=== PATIENT | male | born 1975 | race Caucasian/White ===

== ENCOUNTER 2018-09-01 06:20 | Inpatient (IN) | payer BC ==
[2018-09-01 06:54] LABS: Basophils # (A) 0.1 k/uL (0-0.2); Basophils % (A) 1 %; Eosinophils # (A) 0.9 k/uL (0-0.7); Eosinophils % (A) 9 %; HCT 47.4 % (39.0-53.0); HGB 15.8 gm/dL (13.0-17.5); Lymphocytes # (A) 1.7 k/uL (1.0-4.8); Lymphocytes % (A) 19 %; MCH 31.1 pg (25.0-35.0); MCHC 33.4 g/dL (31.0-37.0); MCV 93.3 fL (80.0-100.0); Mean Platelet Volume 7.2; Monocytes # (A) 0.7 k/uL (0-1.0); Monocytes % (A) 8 %; Neutrophils # (A) 5.5 k/uL (1.3-7.7); Neutrophils % (A) 61 %; Platelet Count 251 k/uL (150-450); RBC 5.08 m/uL (4.30-5.90); RDW 12.5 % (11.5-15.5)
[2018-09-01 07:07] LABS: ALT 38 U/L (21-72); AST 26 U/L (17-59); Albumin 4.3 g/dL (3.5-5.0); Alkaline Phosphatase 74 U/L (38-126); Anion Gap 6 mmol/L; Blood Urea Nitrogen 12 mg/dL (9-20); Calcium 9.8 mg/dL (8.4-10.2); Carbon Dioxide 23 mmol/L (22-30); Chloride 113 mmol/L (98-107); Glucose 114 mg/dL (74-99); Magnesium 1.9 mg/dL (1.6-2.3); Potassium 4.7 mmol/L (3.5-5.1); Sodium 142 mmol/L (137-145); Total Bilirubin 0.4 mg/dL (0.2-1.3); Total Protein 7.2 g/dL (6.3-8.2)
[2018-09-01 07:10] LABS: INR 0.9 (<1.2); Partial Thromboplastin Time 25.6 sec (22.0-30.0); Prothrombin Time 9.9 sec (9.0-12.0)
--- NOTE | 2018-09-01 07:20 | ED ---
Chest Pain HPI - General Source: patient Mode of arrival: ambulatory Limitations: no limitations <Karlee Dash - Last Filed: 09/01/18 07:15> <Estrada Villegas - Last Filed: 09/01/18 08:51> - General Chief Complaint: Chest Pain Stated Complaint: Chest Pain Time Seen by Provider: 09/01/18 06:42 - History of Present Illness Initial Comments: Armando is a previously healthy 43-year-old male presents the emergency department today via private vehicle for evaluation of left-sided chest pain with radiation to the left arm and jaw. Patient reports that he didn't sleep well last night but felt okay when he woke up, he got ready for work and drove to work without incident. Patient reports that upon parking at work and opening the door he felt pain and pressure in his chest. He reports that he sat in his car give himself a chance to breathe through it continued to have pressure-like pain in his chest. Patient reports he then decided to walking to work thinking the fresh air would help, he reports that he had to stop at the door to catch his breath. He then went to his desk but continued to have pressure-like pain, upon seating he noted that the pain seemed to be radiating to his jaw and his left arm. He did take aspirin and contacted his she advised him to try stretching and see if this could be a pulled muscle however the pain persisted at which time he decided to come to the ER for evaluation. Patient is a former smoker but quit smoking multiple months ago. He has no history of hypertension hyperlipidemia diabetes or known vascular disease. He has no family history of early cardiac disease. (Karlee Dash) - Related Data Home Medications Medication Instructions Recorded Confirmed Aspirin EC [Ecotrin] 650 mg PO DAILY PRN 09/01/18 09/01/18 Allergies Allergy/AdvReac Type Severity Reaction Status Date / Time Fish Containing Products Allergy Anaphylaxis Verified 09/01/18 07:08 [Fish] Review of Systems ROS Other: All systems not noted in ROS Statement are negative. <Karlee Dash - Last Filed: 09/01/18 07:15> ROS Other: All systems not noted in ROS Statement are negative. <Estrada Villegas - Last Filed: 09/01/18 08:51> ROS Statement: Those systems with pertinent positive or pertinent negative responses have been documented in the HPI. EKG Findings - EKG Comments: EKG Findings:: EKG was obtained at 6:33 AM, rate is 60 rhythm is sinus there is normal axis, there are normal intervals, there are no acute ST elevations or depressions there is no evidence of acute ischemia or infarction. <Karlee Dash - Last Filed: 09/01/18 07:15> Past Medical History Past Medical History: No Reported History History of Any Multi-Drug Resistant Organisms: None Reported Additional Past Surgical History / Comment(s): exploratory testicular surgery. Past Psychological History: No Psychological Hx Reported Smoking Status: Former smoker Past Alcohol Use History: None Reported Past Drug Use History: None Reported <Karlee Dash - Last Filed: 09/01/18 07:15> General Exam Limitations: no limitations <Karlee Dash - Last Filed: 09/01/18 07:15> <Estrada Villegas - Last Filed: 09/01/18 08:51> - General Exam Comments Initial Comments: Physical Exam GENERAL: Patient is well-developed and well-nourished. Patient is nontoxic and well- hydrated and is in no distress. HENT: Normocephalic, Atraumatic. EYES: PERRL, EOMI PULMONARY: Unlabored respirations. No audible rales rhonchi or wheezing was noted. CARDIOVASCULAR: There is a regular rate and rhythm without any murmurs gallops or rubs. ABDOMEN: Soft and nontender with normal bowel sounds. SKIN: Skin is clear with no lesions or rashes and otherwise unremarkable. : Deferred NEUROLOGIC: Patient is alert and oriented x3. Moving all extremities spontaneously MUSCULOSKELETAL: Normal extremities with adequate strength and full range of motion. No lower extremity swelling or edema. No calf tenderness. PSYCHIATRIC: Normal psychiatric evaluation. 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 Patient did present with complaints of chest pain he did have an episode of nausea with some brief vomiting. He states the pain initially was 7/10 severity currently it's approximately 3/10 in severity. He describes it as retrosternal chest pressure he states it did radiate to his jaw and he has some numbness to his left arm. No prior history of heart disease he is a former smoker. No other risk factors. Patient was given nitroglycerin he did resolve the pain. Patient will be admitted for inpatient evaluation. I did discuss the case with Dr. Ghosh. (Estrada Villegas) Chest Pain MDM <Karlee Dash - Last Filed: 09/01/18 07:15> <Estrada Villegas - Last Filed: 09/01/18 08:51> - MDM She was seen and evaluated history was obtained from the patient and at bedside The previously healthy physically active 43-year-old male who reports he usually walks 6 miles daily and per to [place] in moderate physical activity without any chest pain or shortness breath. Patient developed sudden chest pain upon arrival at work this morning with radiation to the left arm and jaw. Heart score 1 - moderate suspicion Cardiac workup ordered Patient care signed out to Dr Villegas at shift change (Karlee Dash) Disposition <Karlee Dash - Last Filed: 09/01/18 07:15> <Estrada Villegas - Last Filed: 09/01/18 08:51> Clinical Impression: Unstable angina pectoris, Chest pain Disposition: ADMITTED IP TO THIS HOSP Condition: Stable Referrals: Jose Baker MD [Primary Care Provider] - 1-2 days
--- NOTE | 2018-09-01 07:26 | XR ---
EXAMINATION TYPE: XR chest 2V DATE OF EXAM: 09/01/2018 COMPARISON: 07/27/2013 INDICATION: Short of breath chest heaviness TECHNIQUE: Frontal and lateral views of the chest are obtained. FINDINGS: The heart size is normal. The pulmonary vasculature is normal. The lungs are clear. IMPRESSION: 1. No acute pulmonary process.
[2018-09-01 07:33] LABS: Troponin I 0.014 ng/mL (0.000-0.034)
[2018-09-01] MEDS ORDERED: NITROGLYCERIN SL TABS 0.4 MG TAB SUBLINGUAL STA (07:48)
[2018-09-01] MEDS ORDERED: HEPARIN SODIUM,PORCINE 5,000 UNIT/ML 1 ML VIAL IV ONE (08:52)
[2018-09-01] MEDS ORDERED: NITROGLYCERIN SL TABS 0.4 MG TAB SUBLINGUAL PRN (08:52)
[2018-09-01] MEDS ORDERED: HEPARIN SOD,PORK IN 0.45% NACL 25,000 UNIT in 0.45% NACL 1 250ML.BAG IV SCH (09:00)
[2018-09-01] MEDS ORDERED: SODIUM CHLORIDE 0.9% 1,000 ML IV SCH ×2 (09:00→18:15)
[2018-09-01] MEDS ORDERED: amLODIPine 10 MG TAB PO STA (10:09)
[2018-09-01] MEDS ORDERED: LISINOPRIL 2.5 MG TAB PO STA (10:10)
[2018-09-01 10:45] LABS: Cholesterol 255 mg/dL (<200); HDL Cholesterol 35 mg/dL (40-60); LDL Cholesterol,Calculated 141 mg/dL (0-99); Triglycerides 397 mg/dL (<150)
--- NOTE | 2018-09-01 11:16 | P.HPIM ---
History of Present Illness H&P Date: 09/01/18 Chief Complaint: Chest pain The patient is a 43-year-old male with no significant past medical history other than being recently a former smoker that presents to the ER via private vehicle with chief complaint of chest pain. Apparently this morning while in the parking lot at work and while opening his car door he felt severe Left sided chest pain described as heaviness and squeezing with radiation to his jaw and left upper extremity, with associated shortness of breath and nausea. The patient had no diaphoresis, no palpitations, denies any lower extremity swelling. The patient denies any previous symptoms like this, he does report a history of tachycardia which she has not had any problems with for the last several years. The patient denies any recent illnesses, the patient denies any sedentary lifestyle and reports that he walks approximately 6 miles a day at his current job. The patient did report taking aspirin and contacted his fiance who advised them on stretching thinking that his discomfort might be muscular in nature, there was no improvement in his systems persisted and subsequently presented to the ER for further workup. In the ER the patient had a comprehensive typical workup, EKG showed sinus mechanism with no acute suggestive of ischemia with a heart rate of 60, his initial troponin was negative, d-dimer was negative at 0.37. Chest x-ray showed no acute pulmonary process. The patient was started on nitroglycerin and heparin drip, the patient was also to have elevated uncontrolled blood pressures 150/102 and was subsequently recommended for admission to rule out ACS Review of Systems Pertinent positives per HPI all other review of systems otherwise negative Past Medical History Past Medical History: Chest Pain / Angina History of Any Multi-Drug Resistant Organisms: None Reported Additional Past Surgical History / Comment(s): exploratory testicular surgery. Past Anesthesia/Blood Transfusion Reactions: No Reported Reaction Past Psychological History: No Psychological Hx Reported Smoking Status: Former smoker Past Alcohol Use History: None Reported Past Drug Use History: None Reported Medications and Allergies Home Medications Medication Instructions Recorded Confirmed Type Aspirin EC [Ecotrin] 650 mg PO DAILY PRN 09/01/18 09/01/18 History Allergies Allergy/AdvReac Type Severity Reaction Status Date / Time Fish Containing Products Allergy Anaphylaxis Verified 09/01/18 07:08 [Fish] Physical Exam Vitals: Vital Signs Temp Pulse Pulse Resp BP BP Pulse Ox 09/01/18 10:10 97.7 F 58 L 14 129/84 96 01/24/19 08:09 64 18 141/93 97 09/01/18 07:30 52 L 13 132/97 95 09/01/18 06:41 57 L 09/01/18 06:21 97.7 F 67 16 150/102 97 Intake and Output 08/31/18 09/01/18 09/01/18 22:59 06:59 14:59 Intake Total 0 Balance 0 Intake: Oral 0 Other: Weight 95.254 kg Constitutional: No acute distress, conversant, pleasant Eyes: Anicteric sclerae, moist conjunctiva, no lid-lag, PERRLA ENMT: NC/AT,Oropharynx clear, no erythema, exudates Neck:Supple, FROM, no masses, or JVD, No carotid bruits; No thyromegaly Lungs: Clear to auscultation, Clear to percussion, Normal respiratory effort, no accessory muscle use Cardiovascular: Heart regular in rate and rhythm, No murmurs, gallops, or rubs no peripheral edema Abdominal: Soft Nontender, nom distended, no guarding, no rebound or rigidity, Normoactive bowel sounds No hepatomegaly, No splenomegaly, No palpable mass No abdominal wall hernia noted Skin: Normal temperature, tone, texture, turgor, No induration No subcutaneous nodules, No rash, lesions, No ulcers Extremities:No digital cyanosis No clubbing, Pedal pulses intact and symmetrical Radial pulses intact and symmetrical Normal gait and station, No calf tenderness Psychiatric: Alert and oriented to person, place and time, Appropriate affect Intact judgement Neuro: Muscles Strength 5/5 in all 4 extremities, Sensation to light touch grossly present throughout, Cranial nerves II-XII grossly intact. No focal sensory deficits Results CBC & Chem 7: 09/01/18 06:34 09/01/18 06:34 Labs: Abnormal Lab Results - Last 24 Hours (Table) 09/01/18 09/01/18 09/01/18 Range/Units 06:34 06:34 06:34 Eosinophils # 0.9 H (0-0.7) k/uL Chloride 113 H (98-107) mmol/L Glucose 114 H (74-99) mg/dL Total Creatine Kinase 222 H (55-170) U/L Triglycerides (<150) mg/dL Cholesterol (<200) mg/dL LDL Cholesterol, Calc (0-99) mg/dL HDL Cholesterol (40-60) mg/dL 09/01/18 Range/Units 06:34 Eosinophils # (0-0.7) k/uL Chloride (98-107) mmol/L Glucose (74-99) mg/dL Total Creatine Kinase (55-170) U/L Triglycerides 397 H (<150) mg/dL Cholesterol 255 H (<200) mg/dL LDL Cholesterol, Calc 141 H (0-99) mg/dL HDL Cholesterol 35 L (40-60) mg/dL Thrombosis Risk Factor Assmnt - Choose All That Apply Any of the Below Risk Factors Present?: Yes Each Factor Represents 1 point: Age 41-60 years Other Risk Factors: No Thrombosis Risk Factor Assessment Total Risk Factor Score: 1 Thrombosis Risk Factor Assessment Level: Low Risk Assessment and Plan (1) Chest pain Current Visit: Yes Status: Acute Code(s): R07.9 - CHEST PAIN, UNSPECIFIED SNOMED Code(s): 78491043 (2) Elevated blood pressure reading Current Visit: Yes Status: Acute Code(s): R03.0 - ELEVATED BLOOD-PRESSURE READING, W/O DIAGNOSIS OF HTN SNOMED Code(s): 93281875 Plan: Patient is placed in observation anticipate a less than 2 midnight stay with atypical chest pain now resolved. Initial EKG and cardiac enzymes are not suggestive of any acute ischemia, we'll continue to trend enzymes obtain a lipid panel, echocardiogram and consult cardiology. Patient is noted to have elevated blood pressure and possibly has underlying hypertension, heart rate however is borderline and unlikely to tolerate beta blockers at this time hence the patient is started on Norvasc and lisinopril. Routine chest pain orders with aspirin and nitroglycerin are continued we'll continue to follow his clinical course and follow-up with cardiology recommendations. CODE STATUS Full code Discussed plan of care with: Patient Anticipated discharge 1-2 days
[2018-09-01 13:29] LABS: Creatine Kinase MB 4.4 ng/mL (0.0-2.4)
[2018-09-01 13:37] LABS: Troponin I 0.729 ng/mL (0.000-0.034)
[2018-09-01] MEDS ORDERED: CLOPIDOGREL 75 MG TAB PO STA ×3 (15:08→15:52)
[2018-09-01] MEDS: ASPIRIN 81 MG PO SCH (15:35)
[2018-09-01] MEDS: ATORVASTATIN 40 MG TAB PO SCH (15:35)
--- NOTE | 2018-09-01 15:49 | P.CRDCN ---
History of Present Illness History of present illness: This is Dr. Ortiz dictating a consult on this patient The patient was interviewed and examined by me IMPRESSION / ASSESSMENT: Non-Q wave myocardial infarction likely inferior wall territory Serial ECG changes with T-wave inversions in the inferior leads on the second ECG Abnormal troponins, rising pattern Dyslipidemia Past history of smoking for greater than 20 years but stopped smoking several months back PLAN: Atorvastatin 40 mg by mouth daily 1 stat line Plavix 600 mg by mouth stat and thereafter daily Aspirin 162 mg by mouth daily Stop amlodipine Discussed with patient and discussed with Dr. Arechiga We'll proceed with coronary angiography this evening Patient is pain-free at this time. Was relieved with nitroglycerin upon arrival to the emergency room HPI This morning as the patient was heading to work he started experiencing left precordial chest discomfort that radiated to the inside of his left arm and to the left side of the jaw quite severe and he felt uncomfortable and nauseous When he came to the emergency room he was still having pain but was relieved quickly within 5 minutes or so with sublingual nitroglycerin. He is on a Nitropaste has been pain-free since then Second troponin is abnormal Second ECG shows serial T-wave inversions in the inferior leads consistent with injury/non-Q-wave infarction in the inferior wall territory ROS: No fever chills or rigors, no cough, phlegm or expectoration, no diarrhea, no hematuria, dysuria, no musculoskeletal complaints, no strokes or seizures, no skin lesions. EXAMINATION: Normal blood pressure, afebrile 97.7F, pulse rate in the 50s and 60s Blood pressure 141/93 mmHg line breath sounds are clear no rhonchi no crackles Normal heart sounds normal S1 normal S2 no murmurs or gallops no rub Abdomen is soft nontender Extremities warm no edema REVIEW OF LABS, ECG & MEDICAL DATA Normal hemoglobin, normal d-dimer, normal electrolytes, normal kidney function, normal renal function Elevated CPK, rising pattern of CK-MB and rising pattern of troponin I 0.014 followed by 0.7-9 Triglycerides 397 Total cholesterol 255, LDL 141 and HDL 35 Serial changes noted on ECG, inferior leads, development of T-wave inversions Past Medical History Past Medical History: Chest Pain / Angina History of Any Multi-Drug Resistant Organisms: None Reported Additional Past Surgical History / Comment(s): exploratory testicular surgery. Past Anesthesia/Blood Transfusion Reactions: No Reported Reaction Past Psychological History: No Psychological Hx Reported Smoking Status: Former smoker Past Alcohol Use History: None Reported Past Drug Use History: None Reported Medications and Allergies Home Medications Medication Instructions Recorded Confirmed Type Aspirin EC [Ecotrin] 650 mg PO DAILY PRN 09/01/18 09/01/18 History Allergies Allergy/AdvReac Type Severity Reaction Status Date / Time Fish Containing Products Allergy Anaphylaxis Verified 09/01/18 07:08 [Fish] Physical Exam Vitals: Vital Signs Temp Pulse Pulse Resp BP BP Pulse Ox 09/01/18 15:11 95 09/01/18 10:10 97.7 F 58 L 14 129/84 96 09/01/18 08:09 64 18 141/93 97 09/01/18 07:30 52 L 13 132/97 95 09/01/18 06:41 57 L 09/01/18 06:21 97.7 F 67 16 150/102 97 Intake and Output 09/01/18 09/01/18 09/01/18 06:59 14:59 22:59 Intake Total 236 Output Total 1 Balance 235 Intake: Oral 236 Output: Urine 1 Other: Weight 95.254 kg Results 09/01/18 06:34 09/01/18 06:34 Cardiac Enzymes 09/01/18 09/01/18 09/01/18 Range/Units 06:34 06:34 12:29 AST 26 (17-59) U/L CK-MB (CK-2) 2.0 4.4 H (0.0-2.4) ng/mL Troponin I 0.014 0.729 H* (0.000-0.034) ng/mL Coagulation 09/01/18 09/01/18 Range/Units 06:34 15:05 PT 9.9 (9.0-12.0) sec APTT 25.6 34.3 H (22.0-30.0) sec Lipids 09/01/18 Range/Units 06:34 Triglycerides 397 H (<150) mg/dL Cholesterol 255 H (<200) mg/dL HDL Cholesterol 35 L (40-60) mg/dL CBC 09/01/18 Range/Units 06:34 WBC 9.0 (3.8-10.6) k/uL RBC 5.08 (4.30-5.90) m/uL Hgb 15.8 (13.0-17.5) gm/dL Hct 47.4 (39.0-53.0) % Plt Count 251 (150-450) k/uL Comprehensive Metabolic Panel 09/01/18 Range/Units 06:34 Sodium 142 (137-145) mmol/L Potassium 4.7 (3.5-5.1) mmol/L Chloride 113 H (98-107) mmol/L Carbon Dioxide 23 (22-30) mmol/L BUN 12 (9-20) mg/dL Creatinine 0.89 (0.66-1.25) mg/dL Glucose 114 H (74-99) mg/dL Calcium 9.8 (8.4-10.2) mg/dL AST 26 (17-59) U/L ALT 38 (21-72) U/L Alkaline Phosphatase 74 (38-126) U/L Total Protein 7.2 (6.3-8.2) g/dL Albumin 4.3 (3.5-5.0) g/dL Current Medications Generic Name Dose Route Start Last Admin Trade Name Freq PRN Reason Stop Dose Admin Aspirin 162 mg 09/01/18 15:15 09/01/18 15:35 Aspirin PO 162 mg DAILY [facility] Administration Atorvastatin Calcium 40 mg 09/01/18 15:15 09/01/18 15:35 Lipitor PO 40 mg DAILY [facility] Administration Clopidogrel Bisulfate 75 mg 09/02/18 09:00 Plavix PO DAILY [facility] Heparin Sodium/Sodium Chloride 250 mls @ 10 mls/hr 09/01/18 09:00 09/01/18 09 :11 25,000 unit/ Sodium Chloride IV 10.5 units/kg/hr .Q24H ANTHONY 10 mls/hr Administration Protocol 10.5 UNITS/KG/HR Sodium Chloride 1,000 mls @ 20 mls/hr 09/01/18 09:00 09/01/18 09:13 Saline 0.9% IV 20 mls/hr .Q24H ANTHONY Administration Lisinopril 10 mg 09/02/18 09:00 Zestril PO DAILY [facility] Nitroglycerin 1 inch 09/01/18 12:00 Nitro-Bid Oint TOPICAL Q6HR [facility] Nitroglycerin 0.4 mg 09/01/18 08:52 Nitrostat SUBLINGUAL Q5M PRN Chest Pain Intake and Output 09/01/18 09/01/1819 06:59 14:59 22:59 Intake Total 236 Output Total 1 Balance 235 Intake: Oral 236 Output: Urine 1 Other: Weight 95.254 kg 09/01/18 06:34 09/01/18 06:34
[2018-09-01] MEDS ORDERED: HYDROmorphone 2 MG/ML 1 ML SYRINGE IVP ONE (15:50)
[2018-09-01] MEDS ORDERED: VERAPAMIL 2.5 MG/ML 2 ML AMP ONE (17:04)
[2018-09-01] MEDS ORDERED: LIDOCAINE 1% INJ 10MG/ML (20 ML MDV) ONE (17:05)
[2018-09-01] MEDS ORDERED: HEPARIN SODIUM 1,000 UN/ML (10ML VL) ONE (17:05)
[2018-09-01] MEDS ORDERED: SODIUM CHLORIDE 0.9% 1,000 ML IV ONE (17:31)
[2018-09-01] MEDS ORDERED: methylPREDNISolone SOD SUCCI 125 MG/2 ML VIAL ONE (17:34)
[2018-09-01] MEDS ORDERED: MIDAZOLAM 2 MG/2 ML VIAL IVP ONE (17:35)
[2018-09-01] MEDS ORDERED: methylPREDNISolone SOD SUCCI 125 MG/2 ML VIAL IVP ONE (17:38)
[2018-09-01] MEDS ORDERED: LIDOCAINE 2% INJ 20 MG/ML SQ ONE ×2 (17:40→17:53)
[2018-09-01] MEDS: VERAPAMIL SYRINGE (5 MG/10 ML) INTRAARTER ONE ×2 (17:43→17:52)
[2018-09-01] MEDS ORDERED: HEPARIN SODIUM 1,000 UN/ML (10ML VL) IV ONE (18:03)
[2018-09-01] MEDS ORDERED: IOPAMIDOL-370 125ML BTL INJ ONE (18:06)
[2018-09-01] MEDS ORDERED: fentaNYL (PF) 50 MCG/ML 2 ML AMP ONE (18:09)
[2018-09-01] MEDS ORDERED: RX INFO: IV CONTRAST WAS GIVEN 1 EACH MISC MISCELLANE PRN (18:12)
[2018-09-01] MEDS: NITROGLYCERIN OINT 1 INCH/GM PACKET TOPICAL SCH ×3 (18:42→21:20)
[2018-09-01 19:40] LABS: Troponin I 0.747 ng/mL (0.000-0.034)
--- NOTE | 2018-09-01 20:57 | CC ---
CARDIAC CATHETERIZATION REPORT DATE OF SERVICE: 09/01/2018 PERFORMING PHYSICIAN: Hadley Arechiga MD, energy economist. PROCEDURE PERFORMED: 1. Selective right and left coronary angiogram. 2. Left heart catheterization. INDICATION: This is a pleasant 43-year-old gentleman who presented to the hospital with chest discomfort and abnormal cardiac enzymes. Beside that, his EKG was concerning for ischemia with inversion of the T-wave. Because of that, a heart catheterization was advised by Dr. Ortiz. APPROACH: 1. Right radial artery. 2. Right common femoral artery. COMPLICATIONS: None. LEVEL OF SEDATION: Moderate, with sedation length of 31 minutes. PROCEDURE DESCRIPTION: After obtaining informed consent, the patient was brought to the supervisor dental laboratory. The right radial artery was cannulated using micropuncture technique. The micropuncture wire passed easily. Then I placed a 5-Portuguese sheath in the right radial artery. I attempted advancing JR4 through the right radial artery, but the catheter would not cross the right elbow, and because of that I aborted the right radial approach and I proceeded with a right groin approach. The right common femoral artery was cannulated using micropuncture technique. The micropuncture wire passed easily. Then I placed a 6-Portuguese sheath in the right common femoral artery. After that I did selective right and left coronary angiogram using JR4 and JL3.5 catheters. Left heart catheterization was performed using 6-Portuguese pigtail catheter. The procedure was completed without any complication. SELECTIVE CORONARY ANGIOGRAM: 1. The right coronary artery is a large-caliber vessel and it is a dominant vessel. It is angiographically normal. It distally bifurcates into PDA and PLV branches. Both are angiographically normal. 2. The left main is angiographically normal. It bifurcates into left circumflex and left anterior descending artery. 3. Left circumflex is a large-caliber vessel. It is a nondominant vessel. The left circumflex system is angiographically normal. In the mid portion it gives rise to a large OM branch which bifurcates into 2 subbranches, appeared to be angiographically normal. 4. The LAD. The proximal LAD appeared to be normal. The mid LAD is normal and gives rise to 2 diagonal branches. They appeared to be angiographically normal. The LAD distally appeared to be normal. HEMODYNAMICS: The left ventricular end-diastolic pressure was 12 mmHg without a gradient across the aortic valve. CONCLUSION: 1. Normal coronary angiogram. 2. Normal left ventricular end-diastolic pressure. POST-PROCEDURE MANAGEMENT: 1. Medical treatment. 2. Follow up with the patient. SAIDA / ELLYN: [id number] /
[2018-09-02] MEDS ORDERED: CLOPIDOGREL 75 MG TAB PO SCH (09:00)
[2018-09-02] MEDS ORDERED: LISINOPRIL 2.5 MG TAB PO SCH (09:00)
[2018-09-02] MEDS ORDERED: amLODIPine 10 MG TAB PO SCH (09:00)
[2018-09-02] MEDS ORDERED: LISINOPRIL 10 MG TAB PO SCH (09:00)
[2018-09-02] MEDS ORDERED: ASPIRIN 325 MG TAB PO SCH (09:00)
--- NOTE | 2018-09-02 09:19 | ECHOF ---
Referral Reason:chest pain/accelerated hypertension MEASUREMENTS -------- HEIGHT: 180.3 cm WEIGHT: 95.3 kg BP: 129/84 RVIDd: 2.7 cm (< 3.3) IVSd: 1.3 cm (0.6 - 1.1) LVIDd: 4.4 cm (3.9 - 5.3) LVPWd: 1.4 cm (0.6 - 1.1) IVSs: 2.0 cm LVIDs: 2.7 cm LVPWs: 1.5 cm LAESV Index (A-L): 21.61 ml/m Ao Diam: 3.4 cm (2.0 - 3.7) AV Cusp: 2.5 cm (1.5 - 2.6) LA Diam: 3.3 cm (2.7 - 3.8) MV EXCURSION: 24.902 mm (> 18.000) MV EF SLOPE: 177 mm/s (70 - 150) EPSS: 0.3 cm MV E Andrew: 0.76 m/s MV DecT: 233 ms MV A Andrew: 0.60 m/s MV E/A Ratio: 1.27 RAP: 5.00 mmHg RVSP: 9.86 mmHg FINDINGS -------- Sinus rhythm. This was a technically good study. The left ventricular size is normal. There is mild concentric left ventricular hypertrophy. Overa ll left ventricular systolic function is low-normal with, an EF between 50 - 55 %. Basal inferior L V wall motion is hypokinetic. The right ventricle is normal in size and function. The left atrium is normal in size. The right atrium is normal in size. The aortic valve is trileaflet and appears structurally normal. There is trace mitral regurgitation. Trace tricuspid regurgitation present. The right ventricular systolic pressure, as measured by Dopp ler, is 9.86mmHg. Pulmonic valve appears structurally normal. The aortic root size is normal. Normal inferior vena cava with normal inspiratory collapse consistent with estimated right atrial pre ssure of 5 mmHg. The pericardium is normal. CONCLUSIONS -------- 1. Sinus rhythm. 2. This was a technically good study. 3. The left ventricular size is normal. 4. There is mild concentric left ventricular hypertrophy. 5. Overall left ventricular systolic function is low-normal with, an EF between 50 - 55 %. 6. Basal inferior LV wall motion is hypokinetic. 7. The right ventricle is normal in size and function. 8. The left atrium is normal in size. 9. The right atrium is normal in size. 10. The aortic valve is trileaflet and appears structurally normal. 11. There is trace mitral regurgitation. 12. Trace tricuspid regurgitation present. 13. The right ventricular systolic pressure, as measured by Doppler, is 9.86mmHg. 14. Pulmonic valve appears structurally normal. 15. The aortic root size is normal. 16. Normal inferior vena cava with normal inspiratory collapse consistent with estimated right atrial pressure of 5 mmHg. 17. The pericardium is normal. SOLICITING FREIGHT AGENT: Macrina Reyes RDCS
[2018-09-02 09:25] LABS: Creatine Kinase MB 3.7 ng/mL (0.0-2.4)
[2018-09-02 09:28] LABS: Troponin I 0.305 ng/mL (0.000-0.034)
[2018-09-02] MEDS: CLOPIDOGREL 75 MG TAB PO SCH (09:57)
[2018-09-02] MEDS: ATORVASTATIN 40 MG TAB PO SCH (09:57)
[2018-09-02] MEDS: METOPROLOL SUCCINATE (ER) 25 MG TAB.ER.24H PO SCH (09:57)
[2018-09-02] MEDS: ASPIRIN 81 MG PO SCH (09:57)
--- NOTE | 2018-09-02 10:12 | ECHOF ---
Referral Reason:abnormal ecg, followup from 09/01/18 MEASUREMENTS -------- HEIGHT: 185.4 cm WEIGHT: 95.3 kg BP: 120/71 FINDINGS -------- The left ventricular size is normal. There is normal global left ventricular contractility. [facility] systolic function is normal with, an EF between 60 - 65 %. CONCLUSIONS -------- 1. The left ventricular size is normal. 2. There is normal global left ventricular contractility. FILLING MACHINE SET UP MECHANIC: Latonya Rico RDCS
--- NOTE | 2018-09-02 10:26 | P.PN ---
Subjective Principal diagnosis: Patient is doing well. He has no chest discomfort dizziness lightheadedness or palpitations. He's ambulating the hallways Afebrile 98.5F pulse rate in the 80s normal respirations blood pressure 119/ 76. Millimeters of mercury Normal heart sounds no murmurs no gallops no rub Breath sounds are clear no rhonchi no crackles Abdomen is soft nontender Access sites have healed well Impression Patient presented with left precordial chest discomfort with numbness and discomfort in the jaw and the inside of the left arm that was relieved with nitroglycerin, first ECG was normal first troponin is normal Second troponin was abnormal at 0.7 with new ECG changes consistent with inferior wall ischemia with T-wave inversions in leads 3 and aVF Coronary angiography however did NOT reveal any epicardial occlusive coronary arterial disease Past history of smoking for about 22 years but quit several months back History of dyslipidemia with a triglyceride of 397, total cholesterol 255, LDL 141 and HDL of 35 This morning he remains pain-free but his follow-up twelve-lead ECG shows ECG changes, ST-T abnormalities noted inferior laterally now, extending into the lateral precordial leads Repeat troponin this morning is 0.3 consistent with a rise and fall pattern D-dimer was normal yesterday Yesterday his 2-D echo showed preserved LV size and systolic function with possibly a subtle inferior basal wall motion abnormalities although I'm not completely convinced of that I repeated his echo this morning and it shows normal LV size and systolic function with preserved segmental wall motion especially inferior wall and lateral and apical batista He denied any recent viral infection, but I sent titers for parvovirus, coxsackievirus and echovirus He denies any history of migraines or vasculitides He does not have any conditions that could precipitate embolism, d-dimer was normal He did not receive any bad news or any recent stress, He does not perform extreme exercise This is most likely an ischemic event, given the rise and fall pattern in troponins, a type I acute myocardial infarction with PLAQUE rupture with spontaneous resolution rather than the other conditions consider above in the differential diagnosis Final impression Non-Q wave myocardial infarction Suggest Baby aspirin Plavix 75 mg by mouth daily for 6 weeks Atorvastatin 40 mg by mouth daily and I would aim for a 50% reduction in his LDL and aim for preferably below 70 mg deciliter since his baseline is around 141 Low-dose beta blockers No amlodipine No GRADY inhibitorS Continue telemetry monitoring today. Do not discharged today. Discussed in detail with the patient and his I will see him in the office within a week. Further imaging studies in the future as an outpatient Objective - Vital Signs Vital signs: Vital Signs Temp 98.5 F 09/02/18 08:00 Pulse 89 09/02/18 08:58 Resp 16 09/02/18 08:58 BP 119/76 09/02/18 08:00 Pulse Ox 94 L 09/02/18 08:00 Intake & Output 09/01/18 09/02/18 09/02/18 18:59 06:59 18:59 Intake Total 536 Output Total 2 Balance 534 Intake: IV 100 Oral 436 Output: Urine 2 Other: Voiding Method Urinal Urinal # Voids 1 2 - Labs CBC & Chem 7: 09/01/18 06:34 09/01/18 06:34 Labs: Abnormal Lab Results - Last 24 Hours (Table) 09/01/18 09/01/18 09/01/18 Range/Units 06:34 12:29 15:05 APTT 34.3 H (22.0-30.0) sec Total Creatine Kinase 209 H (55-170) U/L CK-MB (CK-2) 4.4 H (0.0-2.4) ng/mL Troponin I 0.729 H* (0.000-0.034) ng/mL Triglycerides 397 H (<150) mg/dL Cholesterol 255 H (<200) mg/dL LDL Cholesterol, Calc 141 H (0-99) mg/dL HDL Cholesterol 35 L (40-60) mg/dL 09/01/18 09/02/18 Range/Units 18:25 08:39 APTT (22.0-30.0) sec Total Creatine Kinase 195 H (55-170) U/L CK-MB (CK-2) 5.0 H 3.7 H (0.0-2.4) ng/mL Troponin I 0.747 H* 0.305 H* (0.000-0.034) ng/mL Triglycerides (<150) mg/dL Cholesterol (<200) mg/dL LDL Cholesterol, Calc (0-99) mg/dL HDL Cholesterol (40-60) mg/dL
--- NOTE | 2018-09-02 10:47 | P.PN ---
Subjective Progress Note Date: 09/02/18 Patient doing well today and denies any chest pain or shortness of breath does report some tenderness in his groin area having his cath yesterday. Objective - Vital Signs Vital signs: Vital Signs Temp 98.5 F 09/02/18 08:00 Pulse 89 09/02/18 08:58 Resp 16 09/02/18 08:58 BP 119/76 09/02/18 08:00 Pulse Ox 94 L 09/02/18 08:00 Intake & Output 09/01/18 09/02/18 09/02/18 18:59 06:59 18:59 Intake Total 536 Output Total 2 Balance 534 Intake: IV 100 Oral 436 Output: Urine 2 Other: Voiding Method Urinal Urinal # Voids 1 2 - Exam Constitutional: No acute distress, conversant, pleasant Eyes: Anicteric sclerae, moist conjunctiva, no lid-lag, PERRLA ENMT: NC/AT,Oropharynx clear, no erythema, exudates Neck:Supple, FROM, no masses, or JVD, No carotid bruits; No thyromegaly Lungs: Clear to auscultation, Clear to percussion, Normal respiratory effort, no accessory muscle use Cardiovascular: Heart regular in rate and rhythm, No murmurs, gallops, or rubs no peripheral edema Abdominal: Soft Nontender, nom distended, no guarding, no rebound or rigidity, Normoactive bowel sounds No hepatomegaly, No splenomegaly, No palpable mass No abdominal wall hernia noted Skin: Normal temperature, tone, texture, turgor, No induration No subcutaneous nodules, No rash, lesions, No ulcers Extremities:No digital cyanosis No clubbing, Pedal pulses intact and symmetrical Radial pulses intact and symmetrical Normal gait and station, No calf tenderness Psychiatric: Alert and oriented to person, place and time, Appropriate affect Intact judgement Neuro: Muscles Strength 5/5 in all 4 extremities, Sensation to light touch grossly present throughout, Cranial nerves II-XII grossly intact. No focal sensory deficits - Labs CBC & Chem 7: 09/01/18 06:34 09/01/18 06:34 Labs: Abnormal Lab Results - Last 24 Hours (Table) 09/01/18 09/01/18 09/01/18 Range/Units 06:34 12:29 15:05 APTT 34.3 H (22.0-30.0) sec Total Creatine Kinase 209 H (55-170) U/L CK-MB (CK-2) 4.4 H (0.0-2.4) ng/mL Troponin I 0.729 H* (0.000-0.034) ng/mL Triglycerides 397 H (<150) mg/dL Cholesterol 255 H (<200) mg/dL LDL Cholesterol, Calc 141 H (0-99) mg/dL HDL Cholesterol 35 L (40-60) mg/dL 09/01/18 09/02/18 Range/Units 18:25 08:39 APTT (22.0-30.0) sec Total Creatine Kinase 195 H (55-170) U/L CK-MB (CK-2) 5.0 H 3.7 H (0.0-2.4) ng/mL Troponin I 0.747 H* 0.305 H* (0.000-0.034) ng/mL Triglycerides (<150) mg/dL Cholesterol (<200) mg/dL LDL Cholesterol, Calc (0-99) mg/dL HDL Cholesterol (40-60) mg/dL Assessment and Plan (1) Non Q wave myocardial infarction Narrative/Plan: * EKG revealed non-Q wave IL in the inferior wall territory with a rising troponins * Patient was continued on heparin drip, dual antiplatelet therapy with Plavix and aspirin * Left heart catheterization showed normal coronaries with no evidence of coronary artery disease * Initially repeat 2-D echocardiograms showing preserved LVEF with no wall motion abnormalities * Possible viral etiology suspected Current Visit: Yes Status: Acute Code(s): I21.4 - NON-ST ELEVATION (NSTEMI) MYOCARDIAL INFARCTION SNOMED Code(s): 530951044 (2) Chest pain Narrative/Plan: * Treatment as above Current Visit: Yes Status: Acute Code(s): R07.9 - CHEST PAIN, UNSPECIFIED SNOMED Code(s): 75250721 (3) Essential hypertension Narrative/Plan: * Blood pressure stable controlled today * Continue Toprol-XL 25 mg by mouth daily Current Visit: Yes Status: Acute Code(s): I10 - ESSENTIAL (PRIMARY) HYPERTENSION SNOMED Code(s): 10645765 (4) Hyperlipidemia Narrative/Plan: * Continue with statin therapy Current Visit: Yes Status: Acute Code(s): E78.5 - HYPERLIPIDEMIA, UNSPECIFIED SNOMED Code(s): 75348623 Plan: We'll continue to observe patient overnight * Anticipated discharge tomorrow
[2018-09-03] MEDS: CLOPIDOGREL 75 MG TAB PO SCH (08:52)
[2018-09-03] MEDS: ASPIRIN 81 MG PO SCH (08:52)
[2018-09-03] MEDS: METOPROLOL SUCCINATE (ER) 25 MG TAB.ER.24H PO SCH (08:53)
[2018-09-03] MEDS: ATORVASTATIN 40 MG TAB PO SCH (08:53)
--- NOTE | 2018-09-03 08:53 | P.PN ---
Subjective Progress Note Date: 09/03/18 Principal diagnosis: Non-ST elevation ND This is a pleasant 43-year-old gentleman who presented to the hospital with a chest discomfort and ruled in for acute coronary event. He underwent heart catheterization and that revealed no evidence of coronary artery disease. On follow-up with him today, he is asymptomatic from the cardiac standpoint. No chest pain or discomfort and no shortness of breath. No dizziness or lightheadedness or syncope. From the cardiac vascular standpoint of view, he can be discharged home. Objective - Vital Signs Vital signs: Vital Signs Temp 97.9 F 09/03/18 04:00 Pulse 69 09/03/18 04:00 Resp 16 09/03/18 04:00 BP 101/63 09/03/18 04:00 Pulse Ox 94 L 09/03/18 04:00 Intake & Output 09/02/18 09/03/18 09/03/18 18:59 06:59 18:59 Intake Total 1088 240 Balance 1088 240 Intake: Oral 1088 240 Other: Voiding Method Toilet Toilet # Voids 1 3 - Constitutional General appearance: Present: no acute distress - Respiratory Respiratory: bilateral: CTA - Cardiovascular Rhythm: regular Heart sounds: normal: S1, S2 - Labs CBC & Chem 7: 09/01/18 06:34 09/01/18 06:34 Labs: Abnormal Lab Results - Last 24 Hours (Table) 09/02/18 Range/Units 08:39 CK-MB (CK-2) 3.7 H (0.0-2.4) ng/mL Troponin I 0.305 H* (0.000-0.034) ng/mL Assessment and Plan Assessment: Assessment #1 acute non-ST elevation myocardial infarction Plan #1 the patient can be discharged home.
[2018-09-03 09:16] VITALS: BP 112/69; PULSE 70; RESP 18; TEMP 98
--- NOTE | 2018-09-03 11:54 | P.DS ---
Providers Date of admission: 09/02/18 13:12 Expected date of discharge: 09/03/18 Attending physician: Consuelo Fernandes DO Consults: 09/01/18 08:52 Consult Physician Urgent Consulting Provider: Chris Garrett Consult Reason/Comments: Chest pain, unstable angina Do you want consulting provider notified?: Yes Primary care physician: Jose Baker - Discharge Diagnosis(es) (1) Non-STEMI (non-ST elevated myocardial infarction) Status: Acute (2) Chest pain Status: Acute (3) Essential hypertension Status: Acute (4) Hyperlipidemia Status: Acute Hospital Course: The patient is a 43-year-old male that was admitted with chest pain and found to have a non-ST elevation DC with EKG concerning for non-Q-wave infarct, the patient's troponins were initially negative but trended up to as high as 0.747. The patient was started on urgent chest pain orders with dual antiplatelet therapy statin therapy and placed on IV heparin drip per protocol. Cardiology was consulted and the patient was urgently taken to the label remover. He underwent heart catheterization and that revealed no evidence of coronary artery disease, only clear coronaries. 2-D echocardiogram initial and subsequent sequential showed a preserved LVEF. The patient was started on beta blockers metoprolol, dual antiplatelet therapy with Plavix and aspirin and was subsequently discharged home in stable condition and instructed to follow- up with cardiology 09/07/18 and his primary care physician. This discharge process took approximately 35 minutes Focused exam Cardiovascular: Regular rate and rhythm no murmurs rubs or gallops, PMI nondisplaced, no JVD, no peripheral edema Patient Condition at Discharge: Stable Plan - Discharge Summary New Discharge Prescriptions: New Aspirin EC [Ecotrin Low Dose] 81 mg PO DAILY #90 tablet. Atorvastatin [Lipitor] 40 mg PO DAILY #90 tablet Clopidogrel Bisulfate [Plavix] 75 mg PO DAILY #90 tab Metoprolol Succinate [[place] Sprinkle] 25 mg PO DAILY #3 cap.spr.24 Discontinued Aspirin EC [Ecotrin] 650 mg PO DAILY PRN PRN Reason: Chest Pain Discharge Medication List Aspirin EC [Ecotrin Low Dose] 81 mg PO DAILY #90 tablet. 09/02/18 [Rx] Atorvastatin [Lipitor] 40 mg PO DAILY #90 tablet 09/02/18 [Rx] Clopidogrel Bisulfate [Plavix] 75 mg PO DAILY #90 tab 09/02/18 [Rx] Metoprolol Succinate [[place] Sprinkle] 25 mg PO DAILY #3 cap.spr.24 09/02/18 [Rx] Follow up Appointment(s)/Referral(s): Terence Ortiz MD [STAFF PHYSICIAN] - 09/07/18 5:15 pm (Follow-up with Dr. Aleman within 7 days) Jose Baker MD [Primary Care Provider] - 1-2 days Activity/Diet/Wound Care/Special Instructions: Aspirin 81 mg by mouth daily Plavix and 5 g by mouth daily Atorvastatin 40 mg by mouth daily Metoprolol succinate 25 g by mouth daily Discharge home no sooner than August Discharge Disposition: HOME SELF-CARE
[2018-09-05 11:30] LABS: Parvovirus B-19 IgG Antibodies 8.13 INDEX (<=0.90); Parvovirus B-19 IgM Antibodies 0.16 INDEX (<=0.90)
== END 2018-09-03 10:59 | disposition home or self-care (01) | DRG 282 ==
LOC: EC 06:20 → 1SOBS 08:55 → OBSVTOIN 09-02 13:12
PROVIDERS: ADMIT Internal Medicine; ATTEND Internal Medicine
PROC: B2111ZZ Fluoroscopy of Multiple Coronary Arteries using Low Osmolar Contrast (ICD-10-PCS; 2018-09-01)
PROC: B2151ZZ Fluoroscopy of Left Heart using Low Osmolar Contrast (ICD-10-PCS; 2018-09-01)
PROC: 4A023N7 Measurement of Cardiac Sampling and Pressure, Left Heart, Percutaneous Approach (ICD-10-PCS; principal; 2018-09-01 17:18)
DX: I21.4 Non-ST elevation (NSTEMI) myocardial infarction (principal); I25.110 Atherosclerotic heart disease of native coronary artery with unstable angina pectoris; E78.5 Hyperlipidemia, unspecified; I10 Essential (primary) hypertension; Z87.891 Personal history of nicotine dependence; Z91.018 Allergy to other foods
CPT/HCPCS: 36415; 71046; 80053; 80061; 82550; 82553; 83735; 84484; 85025; 85379; 85610; 85730; 86658; 86747; 93005; 93306; 93308; 93458; 96374; 99285